=== PATIENT | female | born 1945 | race Caucasian/White ===

== ENCOUNTER 2020-09-15 14:10 | Outpatient (CLI) | payer OTHER, SELFPAY ==
--- NOTE | ~2020-09-15 | XR_ITS ---
EXAMINATION: HAND-LINK ARTHRITIS 3+VIEWS DATE: 09/15/2020 14:28 INDICATION: Rheumatoid arthritis TECHNIQUE: Posteroanterior, lateral, and oblique views of the left and of the right hands as well as a ballcatchers view of both hands were obtained. COMPARISON: None. 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 No fracture. Additional polyarticular osteoarthritis, severe at the left and moderate at th e right wrist joints, severe at the right fourth proximal interphalangeal joint and mild to moderate at the bilateral triscaphe, first carpometacarpal, first metacarpophalangeal and at the remaining link ateral interphalangeal joints. Diffuse osteopenia. IMPRESSION: 1. 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 Reviewed, dictated and finalized at location A. IMPRESSION: 1. 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
--- NOTE | ~2020-09-15 | XR_ITS ---
EXAMINATION: XR foot LT standing 2V, XR foot RT standing 2V DATE: 09/15/2020 14:28 INDICATION: Rheumatoid arthritis with rheumatoid factor TECHNIQUE: 1. Weight bearing dorsal plantar and lateral views of the left foot were obtained. 2. Weight bearing dorsal plantar and lateral views of the right foot were obtained. COMPARISON: None. FINDINGS: Bilateral pes planus and left-sided hindfoot valgus. Bilateral hallux valgus, mild on the right and s evere with additional lateral subluxation on the left. Postoperative change of prior and bunionectomy as well as realignment osteotomy for hallux valgus correction at the right first metatarsal. There i s hyper dorsiflexion at the lateral sided metatarsophalangeal joints and at both feet. Moderate to se mau polyarticular osteoarthritis at the bilateral metatarsophalangeal and interphalangeal joints. Pr ominent erosion at the base of the left fifth proximal phalanx and at the bilateral first interphalan geal joints. Additional periarticular erosions at the medial head of the left first metatarsal with l ocation suggesting this relates either a bunion or gout. Osteoarthritis with prominent dorsal osteoph ytes at the bilateral tarsometatarsal joints, moderate on the right and moderate to severe on the lef t. Mild osteoarthritis at many of the remaining joints in the bilateral mid and hindfeet. Diffuse ost eopenia. Soft tissues are unremarkable. IMPRESSION: 1. Moderate to severe polyarticular osteoarthritis in both feet which given the predominance at the m etatarsophalangeal joints the presence of chronic erosive changes could represent secondary osteoarth ritis related to a primary inflammatory arthritis such as provided history of rheumatoid. 2. Bilateral pes planus and right hindfoot valgus. 3. Severe left hallux valgus and mild right hallux valgus despite changes of prior bunionectomy and r ealignment osteotomy at the right first metatarsal. 4. Periarticular erosions at the medial head of the left first metatarsal with differential including bunion formation, inflammatory arthritis or crystalline arthritis such as gout. Reviewed, dictated and finalized at location A. IMPRESSION: 1. Moderate to severe polyarticular osteoarthritis in both feet which given the predominance at the metatarsophalangeal joints the presence of chronic erosive changes could represent secondary osteoarthritis related to a primary inflamma tory arthritis such as provided history of rheumatoid. 2. Bilateral pes planus and right hindfoot valgus. 3. Severe left hallux valgus and mild right hallux valgus despite changes of pr ior bunionectomy and realignment osteotomy at the right first metatarsal. 4. Periarticular erosions at the medial head of the left first metatarsal with differential including bunion formation, inflammatory arthritis or crystalline arthritis such as gout.
== END 2020-09-15 14:11 | disposition home or self-care (01) ==
PROVIDERS: PCP Family Medicine; Visit Provider Internal Medicine
DX: M05.79 Rheumatoid arthritis with rheumatoid factor of multiple sites without organ or systems involvement (principal); M19.90 Unspecified osteoarthritis, unspecified site; Z11.59 Encounter for screening for other viral diseases; M19.072 Primary osteoarthritis, left ankle and foot; M19.071 Primary osteoarthritis, right ankle and foot; M21.42 Flat foot [pes planus] (acquired), left foot; M21.41 Flat foot [pes planus] (acquired), right foot; M19.042 Primary osteoarthritis, left hand; M19.041 Primary osteoarthritis, right hand; M18.11 Unilateral primary osteoarthritis of first carpometacarpal joint, right hand; M18.12 Unilateral primary osteoarthritis of first carpometacarpal joint, left hand
CPT/HCPCS: 73130; 73620